=== PATIENT | male | born 1940 | race Caucasian/White ===

== ENCOUNTER 2022-12-24 13:48 | Outpatient (CLI) | payer OTHER, SELFPAY ==
[2022-12-24 14:08] VITALS: PULSE 94; RESP 18; O2SAT 97
[2022-12-24] MEDS: albuterol 2.5 mg/3 mL Neb INHALATION (14:10)
[2022-12-24 14:12] VITALS: PULSE 92
== END 2022-12-24 13:49 | disposition home or self-care (01) ==
LOC: RT 13:50
PROVIDERS: PCP Family Medicine; Visit Provider Nurse Practitioner Family
DX: J44.9 Chronic obstructive pulmonary disease, unspecified (principal)
CPT/HCPCS: 94060; J7613